=== PATIENT | male | born 1975 | race Caucasian/White ===

== ENCOUNTER 2024-10-09 22:11 | Emergency (ER) | payer BC ==
--- OUTSIDE RECORDS SUMMARY | 2024-10-09 22:13 | XMS REPORT | Continuity of Care Document ---
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 Name Role Phone LAWRENCE ZAPATA Attending Clinician Unavailable [facility]_P Attending Clinician Unavailable EFRAIN STEWART Attending Clinician Unavailab Major Bae Attending Clinician [phone] [facility]P Admitting Clinician Unavailable Payers Payer Name Policy Type Policy Number Effective Date Expirati on Date Source [facility] CHOICE/CHOICE PLUS [id number] 2021 00:00:[place] [id number] 2017 00:00:00 Problems Condition Name Condition Details Condition Category Status Onset Date Resolution Date Last Treatment Date Treating Clinician Comments Source Type 2 diabetes mellitus Type 2 Diabetes Mellitus Problem Active 1-04 00:00: 00 [facility] Essential hypertensi on Essential Hypertensi on Problem Active 8-06 00:00: 00 [facility] Social History Smoking Status Start Date Stop Date Source Never Smoker [facility] Medications Ordered Medication Name Filled Medication Name Start Date Stop Date Current Medication? Ordering Clinician Indication Dosage Frequency Signature (SIG) Comments Components Source carvedilol 12.5 mg tablet take 1 tablet twice daily carvedilol 12.5 mg tablet take 1 tablet twice daily No carvedilol 12.5 mg tablet take 1 tablet twice daily [facility] losartan 100 mg tablet TAKE 1 TABLET BY MOUTH EVERY DAY losartan 100 mg tablet TAKE 1 TABLET BY MOUTH EVERY DAY No losartan 100 mg tablet TAKE 1 TABLET BY MOUTH EVERY DAY [facility] metformin ER 500 mg tablet,exte nded release 24 hr TAKE 1 TABLET BY MOUTH EVERY DAY metformin ER 500 mg tablet,exte nded release 24 hr TAKE 1 TABLET BY MOUTH EVERY DAY No metformin ER 500 mg tablet,ext ended release 24 hr TAKE 1 TABLET BY MOUTH EVERY DAY [facility] Vital Signs Vital Name Observation Time Observation Value Comments S ource BP Diastolic 2021-06-14 00:00:00 72 mm[Hg] [facility] Height 2021-06-14 00:00:00 72 [in_i] [facility] BMI (Body Mass Index) 2021-06-14 00:00:00 32.5 kg/m2 [facility] BP Systolic 2021-06-14 00:00:00 132 mm[Hg] [facility] Body Weight 2021-06-14 00:00:00 3840 [oz_av] [facility] Plan of Care Planned Activity Planned Date Details Comments Source Diagnostic Test Pending 2021-06-14 00:00:00 HbA1 c (hemoglobin A1c), blood [code = HbA1c (hemoglobin A1c), blood] [facility] Medical Diagnostic Test Pending 2021-06-14 00:00:00 CBC w/ auto diff [code = CBC w/ auto diff] [facility] Diagnostic Test Pending 2021-06-14 00:00:00 CMP, serum or plasma [code = CMP, serum or plasma] [facility] Diagnostic Test Pending 2021-06-14 00:00:00 TSH + free T4, serum [code = TSH + free T4, serum] [facility] 2021-06-14 00:00:00 lipi d panel, serum [code = lipid panel, serum] [facility] Diagnostic Test Pending 2021-06-14 00:00:00 micr oalbumin/creati nine, mass ratio, urine [code = microalbumin/creati nine, mass ratio, urine] [facility] Medical Encounters Start Date/Time End Date/Time Encounter Type Admission Type Attending Clinicians Care Facility Care Department Encounter ID Source 2021-09-07 09:53:48 Outpatient LAWRENCE ZAPATA [facility] [id number] [facility] 2021-08-31 16:14:47 Outpatient LAWRENCE ZAPATA [facility] [id number] [facility] 2021-10-07 08:54:00 2021-10-07 08:54:00 Outpatient [facility]P [facility] [id number] [facility] 2021-09-07 04:51:00 2021-09-07 04:51:00 Outpatient [facility]P [facility] [id number] [facility] 2021-08-30 22:06:00 2021-08-31 02:03:00 Emergency E EFRAIN STEWART [facility] 2021-06-14 09:01:00 2021-06-14 09:01:00 Outpatient [facility]De[facility]P [facility] [id number] [facility] 2021-06-14 00:00:00 2021-06-14 00:00:00 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 [facility] - [facility]_Conr oe Office* [id number] [facility] 2021-06-14 00:00:00 2021-06-14 00:00:00 Outpatient Major No [facility] [id number]
[2024-10-09] MEDS ORDERED: cloNIDine HCL 0.1 MG TAB ONE (22:39)
[2024-10-09] MEDS ORDERED: AMLODIPINE 10 MG TAB ONE (22:39)
--- NOTE | 2024-10-10 00:18 | EDPHYS ---
Physician Documentation [facility] Name: Driss Gurrola Age: 49 yrs Sex: Male : 1975 Arrival Date: 10/09/2024 Time: 22:11 Bed IW1 Private MD: ED Physician Bri Patterson HPI: 10/09 22:35 This 49 yrs old Male presents to ER via Ambulatory with complaints of elbow problem, cp High Blood Pressure. 22:35 Patient is a 49-year-old male with known past medical history significant for cp hypertension and diabetes. Patient presents to the emergency department requesting a refill of his hypertension medication amlodipine. He denies any headache, chest pain, shortness of breath and or blurry vision. Patient states he has been out of his medication for the past 2 weeks and noticed that his blood pressure has been elevated. Patient also is concerned about some swelling that he has noticed in the back of his left elbow. No complaints of pain and no recent injury. Patient reports he has not injured that elbow in the past but nothing recent, noticed the swelling here over the last day or so. Historical: - Allergies: 22:31 No Known Allergies; kl - Home Meds: 22:34 metformin 500 mg Oral tablet daily [Active]; carvedilol 12.5 mg oral tablet [Active]; kl amlodipine 10 mg tablet daily [Active]; atorvastatin 20 mg oral tablet daily [Active]; - PMHx: 22:32 Hypertensive disorder; Diabetes mellitus; high cholesterol; kl - Immunization history:: Adult Immunizations not immunized. - Infectious Disease History:: Denies. - Social history:: Smoking status: Patient reports use of chewing tobacco. Patient uses. ROS: 22:40 Constitutional: Negative for body aches, chills, fever, poor PO intake, cp 22:40 Eyes: Negative for injury, pain, redness, and discharge, cp 22:40 Cardiovascular: Negative for chest pain, edema, palpitations, 22:40 Respiratory: Negative for cough, shortness of breath, wheezing, 22:40 MS/extremity: Positive for swelling, tenderness, of the posterior aspect left elbow, Negative for decreased range of motion, paresthesias, warmth, injury, 22:40 Neuro: Negative for altered mental status, dizziness, headache, numbness, weakness, 22:40 All other systems are negative, Exam: 22:45 Constitutional: The patient appears in no acute distress, alert, awake, cp non-diaphoretic, non-toxic, well developed, well nourished, 22:45 Head/Face: Normocephalic, atraumatic. cp 22:45 Eyes: Periorbital structures: appear normal, Conjunctiva: normal, no exudate, no injection, Sclera: no appreciated abnormality, Lids and lashes: appear normal, bilaterally, 22:45 ENT: External ear(s): are unremarkable, Nose: is normal, Mouth: Lips: moist, Oral mucosa: moist, Posterior pharynx: Airway: no evidence of obstruction, patent, 22:45 Chest/axilla: Inspection: normal, 22:45 Cardiovascular: Rate: normal, Rhythm: regular, 22:45 Respiratory: the patient does not display signs of respiratory distress, Respirations: normal, no use of accessory muscles, no retractions, labored breathing, is not present, Breath sounds: are clear throughout, no decreased breath sounds, 22:45 Abdomen/GI: Inspection: abdomen appears normal, 22:45 Musculoskeletal/extremity: Extremities: noted in the left elbow: mild swelling noted posterior elbow with no erythema, minimal tenderness and no drainage expressed, 22:45 Neuro: Orientation: to person, place \T\ time. Mentation: is normal, Cerebellar function: is grossly normal, Motor: moves all fours, strength is normal, Sensation: is normal, 22:54 ECG was reviewed by the Attending Physician. cp Vital Signs: 22:27 BP 199 / 113; Pulse 96; Resp 18; Temp 98.1; Pulse Ox 99% on R/A; Pain 6/10; kl 23:46 BP 174 / 106; Pulse 96; Resp 18; Pulse Ox 97% ; kl 10/10 00:27 BP 158 / 104; kl 10/09 22:27 Pain Scale: Adult kl MDM: 10/09 22:48 Medical Screening Exam initiated cp 23:00 Differential diagnosis: htn crisis, acute PR, abscess, cellulitis, bursitis. 10/10 00:15 Data reviewed: vital signs, nurses notes, EKG, radiologic studies, plain films, and as cp a result, I will discharge patient. Independent interpretation of the following test(s) in the Emergency Department X-Ray: My interpretation is images of left elbow negative for fracture. 00:17 Counseling: I had a detailed discussion with the patient and/or guardian regarding the cp historical points, exam findings, and any diagnostic results supporting the discharge/admit diagnosis, radiology results, the need for outpatient follow up, a orthopedic surgeon, to return to the emergency department if symptoms worsen or persist or if there are any questions or concerns that arise at home. 00:17 Response to treatment: the patient's symptoms have markedly improved after treatment, cp and as a result, I will discharge patient. 10/09 22:34 Order name: XRAY Elbow LEFT 3 view cp 10/09 22:34 Order name: EKG - Nurse/Tech; Complete Time: 22:52 cp 10/10 00:18 Order name: Javier wrap-joint cp EC/01 22:54 Rate is 92 beats/min. Rhythm is regular. NH interval is normal. QRS interval is cp prolonged at 104 msec. QT interval is normal. T waves are Inverted in lead aVR. T waves are Flattened in lead aVL. Interpreted by me. Reviewed by me. Administered Medications: 22:52 Drug: cloNIDine PO 0.1 mg PO once Route: PO; kl 22:53 Drug: amLODIPine PO 10 mg PO once Route: PO; kl Disposition Summary: 10/10/24 00:17 Discharge Ordered Notes: Location: Home cp Problem: chronic cp Symptoms: have improved cp Condition: Stable cp Diagnosis - Hypertensive heart disease without heart failure cp - Olecranon bursitis, left elbow cp Followup: cp - With: Private Physician - When: 1 week - Reason: blood pressure check Followup: cp - With: Ramakrishna Christian MD - When: 5 - 6 days - Reason: left elbow bursitis Discharge Instructions: - Discharge Summary Sheet cp - Hypertension, Adult cp - Elbow Bursitis cp - Aspirin and Your Heart cp - Form - Blood Pressure Record Sheet cp - How to Take Your Blood Pressure cp Forms: - Medication Reconciliation Form cp - Antibiotic Education cp - Prescription Opioid Use cp - Patient Portal Instructions cp - Leadership Thank You Letter cp Prescriptions: - Ibuprofen 800 mg Oral Tablet - take 1 tablet ORAL route every 8 hours As needed take with food; 30 tablet; cp Refills: 0, Product Selection Permitted - Norvasc 10 mg Oral Tablet - take 1 tablet ORAL route once daily; 30 tablet; Refills: 0, Product Selection cp Permitted Signatures: Dispatcher [employer] Monica Mcconnell, RN RN Dakota Glasgow, RICKY PA cp Corrections: (The following items were deleted from the chart) 22:35 22:35 Elbow Left 3 View+[id number].[email or web address] ordered. MOMO BARR
--- NOTE | 2024-10-10 00:18 | ER ---
Nurse's Notes [facility] Name: Driss Gurrola Age: 49 yrs Sex: Male : 1975 Arrival Date: 10/09/2024 Time: 22:11 Bed IW1 Private MD: Diagnosis: Hypertensive heart disease without heart failure;Olecranon bursitis, left elbow Presentation: 10/09 22:27 Chief complaint: Patient states: bump on left elbow sudden onset also reports out of BP kl med x 2 weeks. Coronavirus screen: Vaccine status: Patient reports being unvaccinated. Ebola Screen: Patient negative for fever greater than or equal to 101.5 degrees Fahrenheit, and additional compatible Ebola Virus Disease symptoms. Initial Sepsis Screen: Does the patient meet any 2 criteria? No. Patient's initial sepsis screen is negative. Does the patient have a suspected source of infection? No. Patient's initial sepsis screen is negative. Risk Assessment: Do you want to hurt yourself or someone else? Patient reports no desire to harm self or others. Onset of symptoms was October 09, 2024. 22:27 Method Of Arrival: Ambulatory 22:27 Acuity: MADISYN 4 kl Triage Assessment: 22:32 General: Appears uncomfortable, Behavior is calm, cooperative. Pain: Complains of pain kl in left elbow Pain currently is 6 out of 10 on a pain scale. Cardiovascular: No deficits noted. Denies chest pain, lightheadedness, palpitations, shortness of breath. 22:34 Musculoskeletal: Swelling present in left elbow. Historical: - Allergies: 22:31 No Known Allergies; - Home Meds: 22:34 metformin 500 mg Oral tablet daily [Active]; carvedilol 12.5 mg oral tablet [Active]; kl amlodipine 10 mg tablet daily [Active]; atorvastatin 20 mg oral tablet daily [Active]; - PMHx: 22:32 Hypertensive disorder; Diabetes mellitus; high cholesterol; kl - Immunization history:: Adult Immunizations not immunized. - Infectious Disease History:: Denies. - Social history:: Smoking status: Patient reports use of chewing tobacco. Patient uses. Screenin/02 00:26 [facility] ED Fall Risk Assessment (Adult) History of falling in the last 3 months, kl including since admission No falls in past 3 months (0 pts) Confusion or Disorientation No (0 pts) Intoxicated or Sedated No (0 pts) Impaired Gait No (0 pts) Mobility Assist Device Used No (0 pt) Altered Elimination No (0 pt) Score/Fall Risk Level 0 - 2 = Low Risk. Abuse screen: Denies threats or abuse. Nutritional screening: No deficits noted. Tuberculosis screening: No symptoms or risk factors identified. Assessment: 00:26 General: Appears in no apparent distress. Behavior is calm, cooperative. Vital Signs: 10/09 22:27 BP 199 / 113; Pulse 96; Resp 18; Temp 98.1; Pulse Ox 99% on R/A; Pain 6/10; kl 23:46 BP 174 / 106; Pulse 96; Resp 18; Pulse Ox 97% ; kl 10/10 00:27 BP 158 / 104; 10/09 22:27 Pain Scale: Adult ED Course: 10/09 22:15 Patient arrived in ED. im 22:16 Dakota Rm PA is PHCP. cp 22:16 Bri Patterson MD is Attending Physician. cp 22:31 Triage completed. kl 22:59 XRAY Elbow LEFT 3 view In Process Unspecified. EDTX 10/10 00:16 Ramakrishna Christian MD is Referral Physician. cp 00:26 Patient has correct armband on for positive identification. kl 00:26 No provider procedures requiring assistance completed. Patient did not have IV access kl during this emergency room visit. Administered Medications: 10/09 22:52 Drug: cloNIDine PO 0.1 mg PO once Route: PO; 22:53 Drug: amLODIPine PO 10 mg PO once Route: PO; Outcome: 10/10 00:17 Discharge ordered by . cp 00:27 Discharged to home ambulatory, 00:27 Condition: improved 00:27 Discharge instructions given to patient, Instructed on discharge instructions, follow up and referral plans. medication usage, Demonstrated understanding of instructions, follow-up care, medications, Prescriptions given X 2, 00:27 Patient left the ED. Signatures: Dispatcher [employer] EDTX Monica Correa RN RN kl Page, Corey, PA PA cp Harmony Ryder im
[2024-10-10 00:32] VITALS: TEMP 98.1
[2024-10-10 00:33] VITALS: O2SAT 97
[2024-10-10 00:34] VITALS: BP 158/104
--- NOTE | 2024-10-10 05:39 | RAD REPORT ---
EXAM DESCRIPTION: Elbow Left 3 View CLINICAL HISTORY: 49 years Male, Pain; swelling COMPARISON: None. FINDINGS: No evidence of an acute fracture of the left elbow. No dislocation. There is mild soft tissue prominence posterior to the olecranon. No significant elbow joint effusion. IMPRESSION: No evidence of an acute fracture of the left elbow. Electronically signed by: Fco Noguera MD 10/10/2024 12:10 AM CDT RP Due to temporary technical issues with the PACS/[employer] reporting system, reports are being angie d by the in-house radiologist without review as a courtesy to ensure prompt reporting the interpreting radiologist is fully responsible for the content of the report. Transcribed Date/Time: 10/10/2024 5:39 AM
--- NOTE | 2024-10-10 16:26 | EKG ---
Test Date: 2024-10-09 Test Time: 22:49:41 Patient Assistant: GEOVANI MEASUREMENT RESULTS: Intervals: Rate: 92 DC: 152 QRSD: 104 QT: 368 QTc: 455 [place]: P: 59 DC: 152 QRS: 39 T: 67 INTERPRETIVE STATEMENTS: Normal sinus rhythm Normal ECG No previous ECG available for comparison Electronically Signed On 10-10-24 16:25:08 CDT by Hernan Ortega
== END 2024-10-10 00:27 | disposition home or self-care (01) ==
LOC: ER 22:11
DX: I11.9 Hypertensive heart disease without heart failure (principal); M70.22 Olecranon bursitis, left elbow; I10 Essential (primary) hypertension; E11.9 Type 2 diabetes mellitus without complications; E78.00 Pure hypercholesterolemia, unspecified
CPT/HCPCS: 93005; 99283